=== PATIENT | male | born 1950 | race Hispanic/Latino ===

== ENCOUNTER 2017-05-19 06:00 | Day surgery (SDC) | payer MEDICARE ==
[~2017-05-19 06:00] MED LIST: NACL 0.9% 1000 ML 1,000 ML IV SCH; PEPCID PO NR
[2017-05-19] MEDS ORDERED: NACL BACTERIOSTATIC INFILTRATI ONE (06:33)
[2017-05-19] MEDS ORDERED: MARCAINE 0.25% INFILTRATI ONE ×3 (06:53→08:27)
[2017-05-19] MEDS ORDERED: XYLOCAINE 1% 20 mL ONE (06:54)
[2017-05-19 07:14] LABS: Basophils % (Auto) 0.9 % (0.0-1.8); Eosinophils # (Auto) 0.2 K/mm3 (0.0-0.4); Eosinophils % (Auto) 4.8 % (0.0-4.3); Hematocrit 48.3 % (35.5-45.6); Hemoglobin 15.9 gm/dl (11.8-15.2); Lymphocytes # (Auto) 1.2 K/mm3 (1.2-5.4); Mean Corpuscular HGB Conc 33 % (32-34); Mean Corpuscular Hemoglobin 30 pg (28-32); Mean Corpuscular Volume 90 fl (84-94); Monocytes # (Auto) 0.6 K/mm3 (0.0-0.8); Monocytes % (Auto) 11.8 % (0.0-7.3); Platelet Count 259 K/mm3 (140-440); Red Blood Count 5.35 M/mm3 (3.65-5.03); Red Cell Distribution Width 13.4 % (13.2-15.2)
[2017-05-19 07:24] LABS: INR 0.9 (0.87-1.13)
[2017-05-19 07:25] LABS: Partial Thromboplastin Time 33.2 Sec. (24.2-36.6)
--- NOTE | 2017-05-19 07:25 | Anesthesia Consultation ---
Anesthesia Consult and Med Hx - Airway Anesthetic Teeth Evaluation: Good ROM Head & Neck: Adequate Mental/Hyoid Distance: Adequate Mallampati Class: Class I Intubation Access Assessment: Good - Pulmonary Exam CTA: Yes - Cardiac Exam Cardiac Exam: RRR - Pre-Operative Health Status ASA Pre-Surgery Classification: ASA3 Proposed Anesthetic Plan: General - Pulmonary Hx Smoking: Yes (FOR 20-25 YEARS, QUIT 09/1998) - Cardiovascular System Hx Hypertension: Yes (2002) Hx Coronary Artery Disease: Yes (history of vascular disease) - Central Nervous System Hx Psychiatric Problems: No - Other Systems Hx Alcohol Use: No Hx Substance Use: No Hx Cancer: No
[2017-05-19] MEDS ORDERED: ZOFRAN IV PRN (07:26)
[2017-05-19] MEDS ORDERED: REGLAN IV PRN (07:26)
--- NOTE | 2017-05-19 07:26 | Anesthesia Day of Surgery ---
Anesthesia Day of Surgery - Day of Surgery Patient Examined: Yes Patient H&P Reviewed: Yes Patient is NPO: Yes Beta Blockers: Yes Cardiac Clearance: Yes Pulmonary Clearance: Yes
[2017-05-19] MEDS ORDERED: XYLOCAINE MPF 2% ONE (07:27)
[2017-05-19] MEDS ORDERED: DIPRIVAN 10 MG/ML IV ONE (07:27)
[2017-05-19] MEDS ORDERED: ZEMURON IV ONE (07:27)
[2017-05-19] MEDS ORDERED: DILAUDID ONE (07:27)
[2017-05-19 07:31] LABS: BUN/Creatinine Ratio 25; Blood Urea Nitrogen 15 mg/dL (9-20); Calcium 9.3 mg/dL (8.4-10.2); Hemolysis Index 16
--- NOTE | 2017-05-19 07:54 | Short Stay Summary ---
Short Stay Documentation Date of service: 05/19/17 - History Principal diagnosis: left inguinal hernia H&P: obtained from office - Allergies and Medications Current Medications: Allergies No Known Allergies Allergy (Verified 05/14/17 13:05) Home Medications Medication Instructions Recorded Confirmed Last Taken Type Aspirin EC [Aspirin Enteric Coated 81 mg PO QDAY 02/28/15 05/14/17 04/04/15 History TAB] Ezetimibe/Simvastatin (Nf) 0.5 tab PO DAILY 02/28/15 05/14/17 04/04/15 History [Vytorin 10-40 mg (Nf)] Humalog 100 UNITS/ML Kwikpen 18 units SQ TID 02/28/15 05/14/17 04/04/15 History Insulin Glargine [Lantus] 40 units SQ QHS 02/28/15 05/14/17 04/03/15 History Metformin HCl [Metformin] 1,000 mg PO DAILY 02/28/15 05/14/17 04/04/15 History Lisinopril [Zestril] 20 mg PO QDAY 05/14/17 05/14/17 Unknown History Multivit-Min/FA/Lycopen/Lutein 1 each PO DAILY 05/14/17 05/14/17 Unknown History [Adults 50+ Multivitamin Tablet] Rivaroxaban [Xarelto] 20 mg PO DAILY 05/14/17 05/14/17 Unknown History Active Medications Cefazolin Sodium (Ancef/Sterile Water 2 Gm/20 Ml) 2 gm IV PREOP NR Stop: 05/19/17 10:00 Famotidine (Pepcid) 20 mg PO PREOP NR Stop: 05/19/17 23:59 Last Admin: 05/19/17 06:53 Dose: 20 mg Sodium Chloride (Nacl 0.9% 1000 Ml) 1,000 mls @ 75 mls/hr IV DIRECT ANNIE Last Admin: 05/19/17 06:53 Dose: 75 mls/hr Metoclopramide HCl (Reglan) 10 mg IV ONCE PRN PRN Reason: Nausea And Vomiting Stop: 05/19/17 10:00 Ondansetron HCl (Zofran) 4 mg IV ONCE PRN PRN Reason: Nausea And Vomiting Stop: 05/19/17 10:00 - Brief post op/procedure progress note Date of procedure: 05/19/17 Pre-op diagnosis: left inguinal hernia Post-op diagnosis: same Procedure: open left inguinal hernia repair with mesh Anesthesia: GETA, local Findings: large direct and small indirect hernia Surgeon: JULIA CALVO Neonatal Icu Coordinator: JUAN LUIS SHIRLEY Estimated blood loss: minimal Pathology: none Condition: stable - Hospital course Hospital course: Patient was observed in the PACU and discharged to home when criteria was met. - Disposition Condition at discharge: Good Disposition: DC-01 TO HOME OR SELFCARE - Discharge Diagnoses (1) Left inguinal hernia Status: Acute Short Stay Discharge Plan Activity: other (no heavy lifting greater than 15-20 lbs for 4-6 weeks. No driving if taking prescription pain medications.) Diet: low salt, diabetic Wound: open to air, other (May shower tomorrow, no baths/hottubs/pools until incision is healed. Pat incision dry, do not scrub) Special Instructions: other (restart xarelto on 05/21/17) Additional Instructions: Call surgeon's office if you have fever>100.4, intractable pain not controlled with pain medications, redness/drainage from incision. Follow up with: STEPHANIE REESE MD [Primary Care Provider] - 7 Days CODEY MESSINA MD [Staff Physician] - 14 Days JULIA CALVO DO [Staff Physician] - 14 Days Prescriptions: HYDROcodone/ACETAMINOPHEN [[place] 5-325 Tablet] 1 each PO Q6H PRN #20 tablet PRN Reason: Pain
[2017-05-19] MEDS ORDERED: ANCEF/STERILE WATER 2 GM/20 ML IV NR (08:00)
[2017-05-19] MEDS ORDERED: XYLOCAINE 1% 20 mL INFILTRATI ONE ×2 (08:27)
[2017-05-19] MEDS ORDERED: ZOFRAN ONE (08:36)
[2017-05-19] MEDS ORDERED: ROBINUL ONE (08:41)
[2017-05-19] MEDS ORDERED: NEOSTIGMINE ONE (08:41)
[2017-05-19] MEDS ORDERED: NACL 0.9% 1000 ML 1,000 ML ONE (08:51)
[2017-05-19] MEDS ORDERED: ePHEDrine SULFATE ONE (08:59)
[2017-05-19 11:33] VITALS: BP 128/69
[2017-05-19] MEDS ORDERED: NORCO 5/325 PO SCH (12:00)
--- NOTE | 2017-05-19 14:36 | Operative Report ---
Operative Report Operative Report: Date of service: 05/19/17 Preoperative diagnosis: Reducible left inguinal hernia Postoperative diagnosis: Same as preoperative diagnosis Procedure performed: Open repair of left inguinal hernia with mesh Surgeon: Katty Contreras D.O [employer] Trader: Praful Carrasco M.D. Anesthesia: general endotracheal anesthesia Findings: Large direct and small indirect hernia Specimen: None EBL: Less than 5 mL Complications: none Patient disposition and condition: stable to PACU HPI an indication: The patient is a 66-year-old male who was referred to the office by Dr. Polk for evaluation of left groin pain. On physical exam, the patient had a large left reducible inguinal hernia. The patient states that the hernia had been very uncomfortable and has been limiting his activities of daily living. A repair of the inguinal hernia was discussed with the patient, all risks and benefits were discussed with the patient and he was in agreement to proceed to open hernia repair with mesh. Consent was signed and placed on chart. Procedure in detail: Patient was identified in the preoperative area and taken back to the operating room and placed on the operating room table in supine position. After anesthesia was induced the left groin hair was clipped and the left groin was prepped and draped in the usual sterile fashion. A timeout was performed. Local anesthetic, a 50/50 mixture of 1% lidocaine and 0.25% marcaine, was infiltrated into the skin at the intended incision site. An oblique incision was made with a 105blade in the left groin between the pubic tubercle and ASIS. The dissection was carried down through the skin and subcutaneous tissue using Bovie electrocautery. Once the external oblique fascia was encountered, it was opened carefully using Metzenbaum scissors. The ilioinguinal nerve was identified and protected. The cord structures were bluntly dissected from the surrounding tissue and carefully encircled with a ellis drain. A large direct and small indirect defect was found. The hernia sac was carefully dissected from the cord structures and cremasteric muscles using elecrtocautery and the hernia sac was reduced. A 6cm plug and patch was used to repair the defect The plug was placed into the deep ring and sutured to the transversalis fascia using 2-0 prolene. The patch was cut to accommodate the cord structures and It was sewn into place to the pubic tubercle, shelving edge of the inguinal ligament laterally, and transversalis muscle medially using 2-0 prolene suture. The surgical field was irrigated and hemostasis achieved. The cord structures were placed in anatomic position. The external oblique fascia was closed using 3-0 Vicryl running stitch. The subcutaneous tissue was then irrigated and hemostasis achieved. The deep dermal layer was closed using interrupted 3-0 Vicryl interrupted stitches. The skin was closed using a 4-0 Monocryl running subcuticular stitch and skin glue. An ilioinguinal nerve block was performed. At the end of the case all sponge, instrument, and sharp counts were correct 2. The patient was awoken from anesthesia and extubated. The patient was taken to PACU in stable condition.
--- NOTE | 2017-05-19 18:16 | Post Anesthesia Evaluation ---
- Post Anesthesia Evaluation Patient Participated: Yes Airway Patent: Yes Stable Respiratory Function: Yes Nausea/Vomiting: No Temp > 96.8F: Yes Pain Manageable: Yes Adequeate Hydration: Yes Anesthesia Complications: No Block Receding Appropriately: Not Applicable
== END 2017-05-19 11:15 | disposition home or self-care (01) ==
LOC: OR 06:00
PROVIDERS: ATTEND Surgery
DX: K40.90 Unilateral inguinal hernia, without obstruction or gangrene, not specified as recurrent (principal); E11.51 Type 2 diabetes mellitus with diabetic peripheral angiopathy without gangrene; I25.10 Atherosclerotic heart disease of native coronary artery without angina pectoris; I10 Essential (primary) hypertension; I48.91 Unspecified atrial fibrillation; Z95.1 Presence of aortocoronary bypass graft; Z79.82 Long term (current) use of aspirin; Z79.4 Long term (current) use of insulin; Z79.899 Other long term (current) drug therapy; Z95.820 Peripheral vascular angioplasty status with implants and grafts; Z87.891 Personal history of nicotine dependence
CPT/HCPCS: 36415; 49505; 80048; 82962; 85025; 85610; 85730; 88304; J0690; J1170; J2405; J2704; J2710; J7030; C1781